=== PATIENT | female | born 1975 | race Caucasian/White ===

== ENCOUNTER 2016-06-24 14:23 | Emergency (ER) | payer MEDICAID ==
[~2016-06-24] VITALS: Ht 177.8 cm; Wt 70.0 kg
[2016-06-24] MEDS: LORAZEPAM 2MG/ML CPJ IM PRN (17:24)
[2016-06-24] MEDS ORDERED: DIPHENHYDRAMINE 50MG/ML VIAL IM ONE (17:45)
[2016-06-24] MEDS ORDERED: OLANZAPINE 10 MG/VIAL IM ONE ×2 (19:15→23:00)
[2016-06-24] MEDS ORDERED: LORAZEPAM 2MG/ML CPJ IM ONE (19:15)
[2016-06-24 22:23] LABS: BASOPHILS % 0.6 % (0.0-2.0); EOSINOPHILS % 1.9 % (0.0-5.0); HEMOGLOBIN. 12.1 g/dL (12.0-16.0); LYMPHOCYTES % 36.4 % (20.0-50.0); MEAN CORPUSCULAR HEMOGLOBIN 30.2 pg (28.0-32.0); MEAN CORPUSCULAR HGB CONC 33.6 g/dL (31.0-37.0); MEAN CORPUSCULAR VOLUME 89.9 fL (81.0-99.0); MEAN PLATELET VOLUME 6.4 fl (7.4-10.4); MONOCYTES % 11.1 % (2.0-8.0); PLATELET 318 x1000/uL (130-400); RED BLOOD CELL COUNT 4.01 mill/uL (4.2-5.4); RED CELL DISTRIBUTION WIDTH 13.4 % (11.6-14.6); WHITE BLOOD COUNT 6.8 x1000/uL (4.5-11.0)
[2016-06-24 22:28] LABS: CLARITY URINE CLOUDY (CLEAR); COLOR URINE YELLOW (YELLOW); GLUCOSE URINE NEGATIVE (NEGATIVE); KETONES URINE NEGATIVE (NEGATIVE); LEUKOCYTE ESTERASE URINE TRACE (NEGATIVE); NITRITE URINE NEGATIVE (NEGATIVE); OCCULT BLOOD URINE NEGATIVE (NEGATIVE); PROTEIN URINE NEGATIVE (NEGATIVE); SPECIFIC GRAVITY URINE 1.011 (1.005-1.030)
[2016-06-24 22:29] LABS: HCG SCREEN NEGATIVE
[2016-06-24 22:39] LABS: BACTERIA URINE 4+; RBC URINE NONE SEEN /hpf (0-2); SQUAMOUS EPITHELIAL CELL URINE RARE /lpf (RARE/1+); WBC URINE 0-2 /hpf (0-2)
[2016-06-24 23:27] LABS: CHLORIDE 107 mEq/L (98-107); INDEX HEMOLYSI 2 (1-3); INDEX ICTERIC 1 (1-4); INDEX LIPEMIC 1 (1-3)
[2016-06-24 23:45] LABS: *AMPHETAMINES SCREEN URINE PRESUMTIVE POSITIVE (NEGATIVE)
[2016-06-24 23:46] LABS: *BARBITURATES SCREEN URINE NEGATIVE (NEGATIVE); *BENZODIAZEPINES SCREEN URINE NEGATIVE (NEGATIVE); *COCAINE SCREEN URINE PRESUMTIVE POSITIVE (NEGATIVE); CANNABINOID URINE SCREEN NEGATIVE (NEGATIVE); ECSTASY MDMA SCREEN URINE NEGATIVE (NEGATIVE); METHADONE URINE SCREEN NEGATIVE (NEGATIVE); OPIATES URINE SCREEN PRESUMTIVE POSITIVE (NEGATIVE); PHENCYCLIDINE URINE SCREEN PRESUMTIVE POSITIVE (NEGATIVE)
[2016-06-24 23:55] LABS: ALANINE AMINOTRANSFERASE 21 IU/L (13-61); ALBUMIN 3.8 g/dL (3.4-5.0); ANION GAP 14; CALCIUM 8.7 mg/dL (8.5-10.1); CARBON DIOXIDE 24 mEq/L (21-32); ETHANOL BLOOD < 10 mg/dL; UREA NITROGEN BLOOD 10 mg/dL (7-21); eGFR > 60 mL/min (>60)
[2016-06-24 23:57] LABS: ACETAMINOPHEN < 10 ug/mL (10-30)
[2016-06-25] MEDS ORDERED: LORAZEPAM 2MG/ML CPJ IM ONE (00:30)
[2016-06-25] MEDS ORDERED: SODIUM CHLORIDE 0.9% 1,000 ML IV ONE (07:30)
[2016-06-25] MEDS ORDERED: LORAZEPAM 2MG/ML CPJ IM PRN (09:30)
[2016-06-25] MEDS ORDERED: HALOPERIDOL LACTATE 5MG/ML VIAL IM ONE (11:15)
[2016-06-25 12:35] VITALS: BP 110/84
== END 2016-06-25 14:00 | disposition home or self-care (01) ==
LOC: ER 14:29
DX: F14.20 Cocaine dependence, uncomplicated (principal); F15.20 Other stimulant dependence, uncomplicated; F16.20 Hallucinogen dependence, uncomplicated; R44.0 Auditory hallucinations; Z63.79 Other stressful life events affecting family and household; F91.8 Other conduct disorders
CPT/HCPCS: 36415; 80053; 80305; 80307; 80329; 81001; 84703; 85025; 96360; 96361; 96372; 99285; G0482; J1200; J1630; J2060; J3490; J7030; Z7610

== ENCOUNTER 2016-06-25 16:01 | Emergency (ER) | payer MEDICAID ==
[~2016-06-25] VITALS: Ht 170.2 cm; Wt 50.0 kg
[2016-06-25] MEDS ORDERED: NALOXONE HCL 1 MG/ML 2ML VIAL SUBCUT ONE (18:00)
[2016-06-26] MEDS ORDERED: HALOPERIDOL LACTATE 5MG/ML VIAL IM ONE (19:30)
[2016-06-26] MEDS ORDERED: DIPHENHYDRAMINE 50MG/ML VIAL IM ONE (19:30)
[2016-06-26] MEDS ORDERED: LORAZEPAM 2MG/ML CPJ IM ONE (19:30)
[2016-06-27 13:09] VITALS: BP 126/65
== END 2016-06-27 14:43 | disposition home or self-care (01) ==
LOC: ER 16:01
DX: T40.5X1A Poisoning by cocaine, accidental (unintentional), initial encounter (principal); T43.621A Poisoning by amphetamines, accidental (unintentional), initial encounter; T40.991A Poisoning by other psychodysleptics [hallucinogens], accidental (unintentional), initial encounter; R41.82 Altered mental status, unspecified; Y92.480 Sidewalk as the place of occurrence of the external cause
CPT/HCPCS: 70450; 96372; 99284; J1200; J1630; J2060; J2310